=== PATIENT | female | born 1985 | race Two or more races ===

== ENCOUNTER 2023-11-17 21:06 | Emergency (ER) | payer MEDICAID, OTHER ==
[~2023-11-17] VITALS: Ht 162.6 cm; Wt 68.0 kg
[2023-11-17] MEDS ORDERED: MORPHINE SULFATE INJ 2 MG/ML DISP.SYRIN ONE (23:26)
[2023-11-17] MEDS: MORPHINE SULFATE INJ 2 MG/ML DISP.SYRIN IM ONE (23:38)
[2023-11-18] MEDS ORDERED: ACET-2605 PO (01:09)
[2023-11-18] MEDS ORDERED: IBUP-1955 PO (01:09)
[2023-11-18 01:33] VITALS: BP 124/72; TEMP 98.1; O2SAT 98
== END 2023-11-18 01:34 | disposition home or self-care (01) ==
LOC: ER 21:07
DX: S20.212A Contusion of left front wall of thorax, initial encounter (principal); S09.8XXA Other specified injuries of head, initial encounter; M79.605 Pain in left leg; V43.52XA Car driver injured in collision with other type car in traffic accident, initial encounter; Y93.89 Activity, other specified; Y92.488 Other paved roadways as the place of occurrence of the external cause; Y99.8 Other external cause status
CPT/HCPCS: 99284; 96372; 73552; 71100; J2270